=== PATIENT | female | born 2000 | race Hispanic/Latino ===

== ENCOUNTER 2025-03-23 16:42 | Emergency (ER) | payer OTHER, SELFPAY ==
[2025-03-23 16:46] VITALS: BP 119/87
[2025-03-23 17:37] VITALS: BMI 21.4
--- NOTE | 2025-03-23 17:59 | ED.GENMED ---
History of Present Illness
General
Chief Complaint: Skin Problem
Source: patient
Exam Limitations: none
Time Seen by Provider: 03/23/25 17:32
Nursing documentation reviewed up to this point in time: agreed with
History of Present Illness
History of Present Illness:
24 female painful swelling left upper buttock told she had a pilonidal cyst, started on antibiotics had fever yesterday, symptoms persist no prior episodes no drainage not known to be diabetic
Past History
Past History
ED Past Medical History: None
ED Past Surgical History: None
Social History
Tobacco: Non-smoker
Alcohol: None
Drug: None
Personal: Single
Living: with family
Employment: Employed
Review of Systems
Review of Systems
All Other Systems: Not applicable
Constitutional: Reports fever (Yesterday)
Phy Exam
Physical Exam
Physical Exam:
Physical Exam
General: no apparent distress, not acutely ill
Lungs: no acute respiratory distress.
Buttock/back 2 x 3 tender fluctuant area left upper gluteal cleft
Neuro: alert and oriented. no focal neurological deficits
Skin: no rash
Psychiatric: cooperative
Extremities: No cyanosis
Course
Orders/Labs/Results
Orders:
Orders
03/23/25 18:02
Bedside Glucose- Treatment ONCE
Vital Signs
Initial and Last Documented VS:
Initial Vital Signs
Temp Pulse Resp BP Pulse Ox
98.5 F 100 18 119/87 99
03/23/25 16:46 03/23/25 16:46 03/23/25 16:46 03/23/25 16:46 03/23/25 16:46
Last Documented Vital Signs
Temp Pulse Resp BP Pulse Ox
98.5 F 100 18 119/87 99
03/23/25 16:46 03/23/25 16:46 03/23/25 16:46 03/23/25 16:46 03/23/25 18:00
Procedures
Incision/Drainage/Joint Aspiration
Left upper buttock:
Anethesia: 1% Lidocaine with Epi
Preparation: cleaned with Betadine
Type of procedure: drain
Nature of site: abscess
Description of abscess: less than 3cm
Loculations broken up: No
How much fluid was obtained?: small amount
Fluid description: purulent
Treatment: left open for drainage
MDM/Problems Addressed
Differential Diagnosis Includes:
Cutaneous abscess, as opposed to pilonidal, cyst, fairly distal from the perirectal area
MDM/Problems Addressed:
Soft tissue swelling
*Pulse Oximetry
SaO2: 99
Oxygen Mode of Delivery: Room air
Patient hypoxic: no
*Critical Care Note
Total Time (30-74mins, 75-104mins- exclusive of procedures): Not Applicable
Update Note
Update Note:
Update
Cutaneous abscess drained, will continue her p.o. antibiotics, sitz bath's
ED Attending Note
-
Portions of this chart may have been created with voice recognition software.� Occasional wrong word or��sound alike� substitutions may have occurred due to the inherent limitations of voice recognition software.
Discharge Plan
Departure
Patient Disposition: Home (Routine Discharge)
Date of Disposition: 03/23/25
Time of Disposition: 18:35
Patient with high blood pressure during this ER visit?: No
Condition: Good
Discharge Problem:
Abscess
Instructions: Abscess incision and drainage - ED (DC), How to take a sitz bath
Activity Restrictions/Additional Instructions:
Sitz bath's for the next few days
Continue antibiotic pills as prescribed
You do not need to continue the antibiotic ointment
Motrin or Tylenol for pain
Return to the ER if worsening symptoms
Interventions
Interventions:
*Risk Screen - Suicide Last Done: 03/23/25 16:46
ED-Skin Assessment Last Done: 03/23/25 17:37
Discharge Date and Time
Print Language: KOREAN
[2025-03-23 18:17] LABS: Glucose - Point of Care 98 mg/dl (70-99)
== END 2025-03-23 19:15 | disposition home or self-care (01) ==
LOC: EMR 16:42
PROVIDERS: EMERGENCY PHYSICIAN Emergency Medicine; FAMILY PHYSICIAN Internal Medicine
DX: L05.01 Pilonidal cyst with abscess (principal)
CPT/HCPCS: 10080; 99283; 82962